=== PATIENT | male | born 1950 | race Caucasian/White ===

== ENCOUNTER 2023-07-25 12:02 | Emergency (ER) | payer MEDICARE, SELFPAY ==
[2023-07-25 12:52] VITALS: BP 187/103
--- NOTE | 2023-07-25 12:56 | ED.PDOC.TRB ---
ED Provider Triage
-
Patient seen by provider in Triage?: Seen in Triage
72 y/o male presenting to the emergency department after 2 days of nosebleeds. Last night symptoms were worse. No bleeding today. Patient states he looked into the left nare where he had the original bleeding and noticed there seem to be a larger
mass that was different than the one on the right which is his main concern. Patient was noted to be tachycardic and hypertensive in triage. Has not seen a primary care provider in about 14 years. Will check some basic labs given his tachycardia
and elevated blood pressure. He is otherwise stable for the waiting room.
[2023-07-25 13:13] LABS: % Basophils 0.6 % (0-2); % Eosinophils 6.4 % (0-6); % Immature Granulocytes 0.3 % (0-0.5); % Lymphocytes 23.6 % (20.5-51.1); % Monocytes 8.3 % (1.7-9.3); % Neutrophils 60.8 % (42.2-75.2); Absolute Eosinophils 0.4 10^3/uL (0-0.7); Absolute Lymphocytes 1.5 10^3/uL (1.2-3.4); Absolute Monocytes 0.5 10^3/uL (0.1-0.6); Absolute Neutrophils 3.8 10^3/uL (1.4-6.5); Hematocrit 46.8 % (39.0-52.0); Hemoglobin 16.4 g/dL (13.0-18.0); Mean Corpuscular Hgb 30.5 pg (27.0-31.0); Mean Platelet Volume 10.5 fL (7.4-10.4); Nucleated Red Blood Cells % 0 % (-); Platelet Count 286 10^3/uL (130-400); Red Blood Cell Count 5.38 10^6/uL (4.70-6.10); White Blood Cell Count 6.3 10^3/uL (4.8-10.8)
[2023-07-25 13:27] LABS: Blood Urea Nitrogen 19 mg/dl (9-20); Calcium 9.7 mg/dl (8.4-10.2); Carbon Dioxide 23 mmol/L (22-30); Chloride 108 mmol/L (98-107); Glucose 105 mg/dl (70-99); Potassium 4.3 mmol/L (3.5-5.1); Sodium 143 mmol/L (135-145); eGFR > 60.00
--- NOTE | 2023-07-25 13:27 | ED.GENMED ---
History of Present Illness
General
Chief Complaint: Nasal Problem
Time Seen by Provider: 07/25/23 13:27
Travel History
Have you had any contact with someone who has COVID-19?: No
Do you have any symptoms of coronavirus? Fever > 100 degrees, chills, cough, shortness of breath, sore throat, loss of taste or smell, muscle aches, or headache?: No
History of Present Illness
History of Present Illness:
HPI: Patient presents with concerns for infection of the left nostril. He has had issues over the past 4 to 6 weeks. He noticed some irritation and more recently noticed some bleeding with questionable mass. He came in here for further
evaluation. He has no significant pain. He has tried Neosporin without significant improvement.
EXAM:
GENERAL: Well appearing in no distress
HEENT: Moist oral mucosa, there is some slight irritation to both anterior nasal septi. Although he reported seeing a mass, I see no clear sign of right nasal mass, I suspect what he is noticing is the nasal turbinate on the left side. There is
no active bleeding. The posterior oropharynx shows no active bleeding/blood.
NEUROLOGIC: Excellent strength all extremities, no coordination deficits
PSYCHIATRIC: Appropriate mental status, normal insight and judgement
EXTREMITIES: Nontender, no edema, moves all extremities equally
SKIN: No rash, no lesions
TIME OF INITIAL ENCOUNTER: 1:30 PM
NUMBER AND COMPLEXITY OF PROBLEMS ADDRESSED AT THE ENCOUNTER
� Chronic conditions affecting care: GERD
� Acute Exacerbation and/or Progression of Chronic Illness: This is a subacute problem
� Differential Diagnosis includes: Nasal irritation, nosebleed, nasal mass, nasal infection/cellulitis, abscess
AMOUNT AND/OR COMPLEXITY OF DATA TO BE REVIEWED AND ANALYZED
� I performed an independent evaluation of and my interpretation is:
EKG:
CT:
X-rays:
Laboratory Studies: White count normal 6.3, chemistries unremarkable
Other:
� Review of other/old records: No old records available for review
� Clinical information was obtained by an independent historian: None the
� Prescriptions/Medications Considered but not given:
� Further testing considered but not performed:
RISK OF COMPLICATIONS AND/OR MORBIDITY OR MORTALITY OF PATIENT MANAGEMENT
� Social determinants of health affecting care: [place] at [place] in the [place] area
� Discussion with other providers:
� Escalation of care including admission/observation vs risk of discharge considered: Physical exam is relatively unremarkable. Will try mupirocin ointment as well as a prescription for Bactrim. He is to follow-up with ENT
given his concerns and unclear etiology based on current examination.
Phy Exam
Physical Exam
Physical Exam:
See HPI
Course
Orders/Labs/Results
Orders:
Orders
07/25/23 13:05
Basic Metabolic Panel Urgent
Complete Blood Count/With Diff Urgent
Abnormal Lab Results
07/25/23
13:05
MPV 10.5 H fL
(7.4-10.4)
Eosinophils % 6.4 H %
(0-6)
Chloride 108 H mmol/L
(98-107)
Glucose 105 H mg/dl
(70-99)
07/25/23 13:05
07/25/23 13:05
Vital Signs
Initial and Last Documented VS:
Initial Vital Signs
Pulse Resp BP Pulse Ox
112 20 187/103 97
07/25/23 12:52 07/25/23 12:52 07/25/23 12:52 07/25/23 12:52
Last Documented Vital Signs
Pulse Resp BP Pulse Ox
112 20 187/103 97
07/25/23 12:52 07/25/23 12:52 07/25/23 12:52 07/25/23 12:52
*Critical Care Note
Total Time (30-74mins, 75-104mins- exclusive of procedures): Not Applicable
ED Attending Note
-
Portions of this chart may have been created with voice recognition software.� Occasional wrong word or��sound alike� substitutions may have occurred due to the inherent limitations of voice recognition software.
Discharge Plan
Departure
Patient Disposition: Home (Routine Discharge)
Date of Disposition: 07/25/23
Time of Disposition: 13:38
Patient with high blood pressure during this ER visit?: Yes
Discharge Problem:
Nasal bleeding
Instructions: Nosebleeds (DC)
Prescriptions:
New
mupirocin 2 % ointment
1 applic topical BID Qty: 22 0RF
sulfamethoxazole-trimethoprim [Bactrim DS] 800-160 mg tablet
1 tab PO BID Qty: 14 0RF
Referrals:
Ari Pelayo MD [Active] - Follow up in 5-7 days
Activity Restrictions/Additional Instructions:
The cause of your symptoms is unclear. We can try an oral antibiotic as well as a topical antibiotic called mupirocin. I recommend that you follow-up with an ENT doctor such as Dr. Pelayo. Your blood pressure is very high and you should follow-up
with a primary care doctor for reassessment. Your white blood cell count is normal, hemoglobin level is normal, glucose is 105 and other chemistry tests are unremarkable.
Interventions
Interventions:
*ED COVID-19 Vaccine History Last Done: 07/25/23 12:52
Discharge Date and Time
Print Language: CITIZ[place]
== END 2023-07-25 14:06 | disposition home or self-care (01) ==
LOC: EMR 12:02
PROVIDERS: Physician Assistant Medical; EMERGENCY PHYSICIAN Emergency Medicine
DX: R04.0 Epistaxis (principal)
CPT/HCPCS: 99283; 80048; 85025